=== PATIENT | male | born 1995 | race Caucasian/White ===

== ENCOUNTER 2024-07-28 11:59 | Emergency (ER) | payer BC, OTHER ==
[2024-07-28] MEDS ORDERED: SULFAMETHOXAZOLE/TRIMETHOPRIM 800MG/160MG D.S. TABLET ONE (12:37)
[2024-07-28] MEDS ORDERED: IBUPROFEN 600 MG TABLET (FP) PO ONE (12:37)
[2024-07-28] MEDS: SULFAMETHOXAZOLE/TRIMETHOPRIM 800MG/160MG D.S. TABLET PO ONE (12:40)
[2024-07-28] MEDS: IBUPROFEN 600 MG TABLET (FP) PO ONE (12:40)
[2024-07-28 13:21] VITALS: BP 118/78; PULSE 74; RESP 18; TEMP 98.6; BMI 25.0
[2024-07-28 19:23] LABS: HIV INTERPRETATION NEGATIVE (NEGATIVE)
== END 2024-07-28 12:53 | disposition home or self-care (01) ==
LOC: JERFT 11:59
DX: L03.032 Cellulitis of left toe (principal)
CPT/HCPCS: 36415; 86803; 87389; 99283-25

== ENCOUNTER 2025-04-22 21:21 | Emergency (ER) | payer OTHER, BC ==
[2025-04-22 21:50] VITALS: BP 128/69; PULSE 77; RESP 20; TEMP 98.3; BMI 25.2
[2025-04-22] MEDS ORDERED: DIPHTH,PERTUSS(ACELL),TET 0.5 ML DISP.SYRIN IM ONE (23:38)
[2025-04-22] MEDS: DIPHTH,PERTUSS(ACELL),TET 0.5 ML DISP.SYRIN IM ONE (23:43)
== END 2025-04-22 23:44 | disposition home or self-care (01) ==
LOC: JERFT 21:21 → JER 21:21 → JERFT 23:44
PROC: 0HQFXZZ Repair Right Hand Skin, External Approach (ICD-10-PCS; principal; 2025-04-22)
PROC: 3E0234Z Introduction of Serum, Toxoid and Vaccine into Muscle, Percutaneous Approach (ICD-10-PCS; 2025-04-22)
DX: S61.011A Laceration without foreign body of right thumb without damage to nail, initial encounter (principal); Z23 Encounter for immunization; W27.2XXA Contact with scissors, initial encounter; Y99.0 Civilian activity done for income or pay
CPT/HCPCS: 90715; 99284-25

== ENCOUNTER 2025-05-01 16:32 | Emergency (ER) | payer OTHER, BC ==
[2025-05-01 16:47] VITALS: BP 120/77; PULSE 73; RESP 20; TEMP 98; BMI 25.0
[2025-05-01] MEDS ORDERED: BACITRACIN ZINC 15 GM TUBE TOPICAL OINTMENT ONE (17:19)
[2025-05-01] MEDS: BACITRACIN ZINC 15 GM TUBE TOPICAL OINTMENT TP ONE (17:21)
== END 2025-05-01 17:37 | disposition home or self-care (01) ==
LOC: JERFT 16:32
DX: Z48.02 Encounter for removal of sutures (principal)
CPT/HCPCS: 99281-25